=== PATIENT | female | born 1960 | race Two or more races ===

== ENCOUNTER → 2020-04-04 | Day surgery (SDC) | payer OTHER ==
[~2020-04-04] VITALS: Ht 162.6 cm; Wt 103.4 kg
[2020-04-04] VITALS (12 sets, daily range): BP systolic 129–168; BP diastolic 72–94
[~2020-04-04] MED LIST: ATORVASTATIN CA80 MG ORAL; BREO ELLIPTA 11 EACH IH; D5 1/2NS 1,000 ML IV SCH; DiphenhydrAMINE 50mg/ml Inj IVP PRN; EPINEPHrine 1mg/1ml Amp ONE; FLONASE ALLERG9.9 ML NS; HYDROcodone/Acetamin 5/325 tab ORAL PRN; HYDROmorphone 1mg/ml Carpuject SUBQ PRN; Hydromorphone 0.5mg/0.5ml inj IVP PRN; Kenalog-40 1ml Vial ONE; Ketorolac 30mg Inj IV PRN; Ketorolac 30mg Inj ONE; LR 1000ml 1,000 ML IVLG SCH; LR 1000ml ONE; Midazolam 2mg/2ml Inj ONE; NS Irrig 2000ml IRRIG ONE; OMEPRAZOLE40 M1 ORAL; Ropivacaine 5mg/ml Vial 20ml INJ ONE; SINGULAIR10 MG ORAL; Tylenol #3 tab (300mg/30mg) ORAL PRN; ZYRTEC10 MG ORAL; ceFAZolin 1gm IVPB IVPB ONE; celeBREX 200mg Cap **SURGERY PATIENTS ONLY ORAL ONE; fentaNYL 100 mcg/2 mL IV ONE; oxyCONTIN 20mg tab ORAL ONE
--- NOTE | 2020-04-04 11:56 | Pre-Procedure Note/Attestation ---
Pre-Procedure Note/Attestation Complete Prior to Procedure Planned Procedure: right Procedure Narrative: shouloder arthroscopy, sad, possible rc repair Indications for Procedure Pre-Operative Diagnosis: right shoulder internal derangment Attestation I attest that I discussed the nature of the procedure; its benefits; risks and complications; and alternatives (and the risks and benefits of such alternatives ), prior to the procedure, with the patient (or the patient's legal telephone claims representative). I attest that, if there was a reasonable possibility of needing a blood transfusion, the patient (or the patient's legal telephone claims representative) was given the [facility] standardized written summary, pursuant to the Radames Mccool Blood Safety Act ([place] Health and Safety Code # 1645, as amended). I attest that I re-evaluated the patient just prior to the surgery and that there has been no change in the patient's H&P, except as documented below: Etsuardo Gaona MD Apr 04, 2020 11:56
--- NOTE | 2020-04-04 11:57 | Operative Note - PDOC ---
Operative Note Operative Note Pre-op Diagnosis: right shoulder internal derangment Procedure: see op report Post-op Diagnosis: same as pre-op plus Operative Findings: consistent w/pre-op dx studies Anesthesia: regional Specimen: none Complications: none Condition: stable Estimated Blood Loss: none Implant(s) used?: No Estuardo Gaona MD Apr 04, 2020 11:57
--- NOTE | 2020-04-04 13:05 | Anethesia Preoperative Eval ---
Anesthesia Pre-op PMH/ROS General Date of Evaluation: Apr 04, 2020 Time of Evaluation: 11:50 Anesthesiologist: Mikie ASA Score: ASA 3 Mallampati Score Class I : Soft palate, uvula, fauces, pillars visible Class II: Soft palate, uvula, fauces visible Class III: Soft palate, base of uvula visible Class IV: Only hard plate visible Mallampati Classification: Class II Surgeon: Jimenez Diagnosis: R shoulder pain Surgical Procedure: R shoulder scope Anesthesia History: none Social History: smoking - h/o Family History: no anesthesia problems Allergies: Coded Allergies: INDOMETHACIN (Verified Allergy, Severe, MIGRAINES, VOMITING, 04/01/20) SALMETEROL (Verified Allergy, Severe, PALPITATIONS, 04/01/20) Medications: see eMAR Patient NPO?: Yes Past Medical History Cardiovascular: Denies: HTN, CAD, [place], valve dz, arrhythmia, other Pulmonary: Reports: ZAK; Denies: asthma, COPD, other Gastrointestinal/Genitourinary: Reports: GERD; Denies: CRI, ESRD, other Neurologic/Psychiatric: Reports: depression/anxiety Endocrine: 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 Exam Physician Exam Last Vital Signs Date Time Temp Pulse Resp B/P (MAP) Pulse Ox O2 Delivery O2 Flow Rate FiO2 04/04/20 06:40 Room Air 04/04/20 06:39 97.8 75 18 142/94 97 Constitutional: NAD Neurologic: CN 2-12 intact Cardiovascular: RRR, no M/R/G Respiratory: CTA Gastrointestinal: other - obesity Airway Exam Mallampati Score: Class II MO: full Neck: flexible ROM: full Teeth: intact Dentures: no upper, no lower Anesthesia Pre-op A/P Labs see chart Accucheck 98 at admission Studies Pre-op Studies: EKG - SR Risk Assessment & Plan Assessment: ASA 2 Plan: GA with LMA brachial plexus block for postop pain control Status Change Before Surgery: No Pre-Antibiotics Drug: Ancef 2gr Given Within 1 Hr of Incision: Yes Time Given: 12:40 Jacob Deluna MD Apr 04, 2020 13:05
--- NOTE | 2020-04-04 14:02 | Immediate Post-Op Evaluation ---
Immediate Post-Op Evalulation Immediate Post-Op Evalulation Procedure: R shoulder Arthroscopy, subacromion decompression RC repair Date of Evaluation: Apr 04, 2020 Time of Evaluation: 14:01 IV Fluids: 600 Blood Products: none Estimated Blood Loss: min Urinary Output: none Blood Pressure Systolic: 158 Blood Pressure Diastolic: 82 Pulse Rate: 76 Respiratory Rate: 20 O2 Sat by Pulse Oximetry: 99 Temperature (Fahrenheit): 97.6 Pain Score (1-10): 1 Nausea: No Vomiting: No Complications none Patient Status: reacts, patent, none Hydration Status: adequate Jacob Deluna MD Apr 04, 2020 14:02
--- NOTE | 2020-04-04 14:27 | 48 Hour Post Anesthesia Eval ---
Post Anesthesia Evaluation Procedure: R shoulder Arthroscopy, subacromion decompression RC repair Date of Evaluation: Apr 04, 2020 Time of Evaluation: 14:26 Blood Pressure Systolic: 146 0: 72 Pulse Rate: 83 Respiratory Rate: 20 Temperature (Fahrenheit): 97.6 O2 Sat by Pulse Oximetry: 98 Airway: patent Nausea: No Vomiting: No Pain Intensity: 1 Hydration Status: adequate Cardiopulmonary Status: stable Mental Status/LOC: patient returned to baseline Follow-up Care/Observations: n/a Post-Anesthesia Complications: none Follow-up care needed: ready to discharge Jacob Deluna MD Apr 04, 2020 14:27
--- NOTE | 2020-04-07 18:14 | Operative Note - Dictated ---
DATE OF OPERATION: 04/04/2020 PREOPERATIVE DIAGNOSIS: Right shoulder internal derangement of the rotator cuff tear/impingement. POSTOPERATIVE DIAGNOSES: 1. Grade 1 superior labral tear. 2. Partial articular-sided rotator cuff tear. 3. Right shoulder high grade bursal-sided articular tear. 4. Subacromial impingement/bursitis. PROCEDURES: 1. Right shoulder arthroscopy, extensive intraarticular debridement. 2. Right shoulder subacromial decompression, bursectomy. 3. Right shoulder arthroscopic rotator cuff repair. SURGEON: Estuardo Gaona MD ANESTHESIA: Interscalene and general. INDICATION FOR PROCEDURE: The patient is a 60-year-old female with progressive right shoulder pain. She had an MRI, which showed possible full-thickness rotator cuff tear. She failed conservative treatment. Elected to undergo right shoulder arthroscopy, possible rotator cuff repair versus debridement. Risks, limitations, expectations, complications of the procedure were discussed in detail. All questions addressed. DESCRIPTION OF PROCEDURE: After informed consent was obtained, the patient was brought to the operating room. The patient was placed under general anesthesia. The patient was then positioned carefully in beach chair position. Right shoulder was prepped and draped in a sterile manner. Time-out was performed. Inferolateral stab incision was then made. Trocar was introduced into the glenohumeral joint. There was some fraying along the superior labrum as well as along the articular side of the supraspinatus. She was then placed through the rotator interval. The superior labrum was debrided down to stable rim of tissue. There was negative peel-back sign. The articular side of the rotator cuff tear was debrided down to stable rim of tissue. Once that was done, the camera was repositioned in the subacromial space. Complete bursectomy was performed. Undersurface of the acromion was identified. Acromioplasty was started from lateral to medial and completed posterior to anterior. Once that was done, there was a high-grade bursal-sided rotator cuff tear along the anterior edge of the supraspinatus. The bone was debrided down to the and 2 anchors were then placed to reconstitute the high grade bursal-sided rotator cuff tear. Once that was completed, the instruments were removed. Portal sites were closed with 3-0 Monocryl sutures. COMPLICATIONS: None. SPECIMENS: None. Estuardo Gaona M.D. DR: JOVANNI JOB#: [id number] CC:
== END | disposition home or self-care (01) ==
LOC: SUR 05:52
DX: M75.111 Incomplete rotator cuff tear or rupture of right shoulder, not specified as traumatic (principal); S43.431A Superior glenoid labrum lesion of right shoulder, initial encounter; M25.811 Other specified joint disorders, right shoulder; M71.9 Bursopathy, unspecified; X58.XXXA Exposure to other specified factors, initial encounter; Y92.9 Unspecified place or not applicable; Z87.891 Personal history of nicotine dependence; G47.33 Obstructive sleep apnea (adult) (pediatric); K21.9 Gastro-esophageal reflux disease without esophagitis; E11.9 Type 2 diabetes mellitus without complications; F32.9 Major depressive disorder, single episode, unspecified; F41.9 Anxiety disorder, unspecified; Z88.8 Allergy status to other drugs, medicaments and biological substances; E66.9 Obesity, unspecified; Z68.39 Body mass index [BMI] 39.0-39.9, adult
CPT/HCPCS: 29823; 29826; 29827; 94003; C1713; J0171; J0690; J1885; J2250; J2704; J2795; J3010; J7120; U0002; 94150